=== PATIENT | female | born 1950 | race Caucasian/White ===

== ENCOUNTER 2020-12-28 13:44 | Outpatient (CLI) | payer MEDICARE, MEDICAID, SELFPAY | END 2020-12-28 13:45 | disposition home or self-care (01) | DX: H90.3 Sensorineural hearing loss, bilateral (principal) | CPT/HCPCS: 92557; 92567 ==

== ENCOUNTER 2021-01-25 10:23 | Outpatient (RCR) | payer MEDICAID, SELFPAY | END 2021-01-25 23:59 | disposition home or self-care (01) | LOC: ANHAUDIO 10:23 | DX: Z46.1 Encounter for fitting and adjustment of hearing aid (principal) | CPT/HCPCS: V5160; V5261 ==

== ENCOUNTER 2022-11-19 13:00 | Outpatient (RCR) | payer MEDICARE, MEDICAID, SELFPAY | END 2022-11-19 23:59 | disposition home or self-care (01) | LOC: ANHAUDIO 13:00 | DX: Z46.1 Encounter for fitting and adjustment of hearing aid (principal) | CPT/HCPCS: 99199 ==